=== PATIENT | female | born 1980 ===

== ENCOUNTER 2017-04-08 09:02 | Emergency (ER) | payer OTHER ==
[2017-04-08 09:08] VITALS: BP 108/67
--- NOTE | 2017-04-08 09:42 | UC ---
Ear Complaint HPI - HPI Summary HPI Summary: Patient presents with complaints of right ear pain x 1 day. She denies any change in hearing, drainage, or bleeding. She denies fever, chills, nausea or vomiting associated with her symptoms. She states she has a history of ear infections and this feel the same. - History of Current Complaint Chief Complaint: UCEar Stated Complaint: EAR PAIN Time Seen by Provider: 04/08/17 09:16 Hx Obtained From: Patient Hx Last Menstrual Period: 03/29/17 ?: No Onset/Duration: Gradual Onset, Lasting Days Severity Initially: Moderate Severity Currently: Moderate Aggravating Factors: Nothing Alleviating Factors: OTC Meds - Allergies/Home Medications Allergies/Adverse Reactions: Allergies Allergy/AdvReac Type Severity Reaction Status Date / Time Cephalexin [From Keflex] Allergy Red and Verified 04/08/17 09:04 itching PMH/Surg Hx/FS Hx/Imm Hx Previously Healthy: Yes - Surgical History Surgical History: Yes Surgery Procedure, Year, and Place: CLEFT PALATE - 1981. BREAST AUGMENTATION - . FIBROIDS REMOVED FROM Lt BREAST - Family History Known Family History: Positive: None - Social History Occupation: Employed Full-time Lives: Alone Alcohol Use: Rare Substance Use Type: None Smoking Status (MU): Never Smoked Tobacco Review of Systems ENT: Ear Ache All Other Systems Reviewed And Are Negative: Yes Physical Exam Triage Information Reviewed: Yes Appearance: Well-Appearing Vital Signs: Initial Vital Signs Temp 97.8 F 04/08/17 09:05 Pulse 106 04/08/17 09:05 Resp 20 04/08/17 09:05 BP 108/67 04/08/17 09:05 Pulse Ox 100 04/08/17 09:05 Vital Signs Reviewed: Yes Eye Exam: Normal ENT Exam: Normal ENT: Positive: TM dull, TM red Neck exam: Normal Respiratory Exam: Normal Cardiovascular Exam: Normal Skin Exam: Normal Ear Complaint Course/Dx - Course Course Of Treatment: patient presents with ear pain, exam reveals otitis media, treated with Augmentin 500 mg bid x 10 days. follow up with PCP if symptoms persist. - Differential Dx/Diagnosis Differential Diagnosis/HQI/PQRI: Otitis Media Provider Diagnoses: otitis media Discharge - Discharge Plan Condition: Stable Disposition: HOME Prescriptions: Amoxicillin/Clavulanate TAB* [Augmentin TAB 500 mg*] 500 mg PO BID #20 tab Patient Education Materials: Otitis Media (ED) Referrals: Maia Woodruff PA [Primary Care Provider] -
== END 2017-04-08 09:33 | disposition home or self-care (01) ==
LOC: UCEAST 09:02
DX: H66.91 Otitis media, unspecified, right ear (principal)
CPT/HCPCS: 99212; G0463